=== PATIENT | female | born 1945 | race Caucasian/White ===

== ENCOUNTER → 2019-08-13 15:33 | Outpatient (BNVA) | payer MEDICARE, SELFPAY | PROVIDERS: Visit Provider Nurse Practitioner | DX: I35.9 Nonrheumatic aortic valve disorder, unspecified (principal); E04.9 Nontoxic goiter, unspecified | CPT/HCPCS: 80053; 84443 ==

== ENCOUNTER → 2019-11-03 09:04 | Outpatient (BNVA) | payer MEDICARE, SELFPAY | PROVIDERS: Visit Provider Nurse Practitioner | DX: E78.5 Hyperlipidemia, unspecified (principal); I10 Essential (primary) hypertension; R73.09 Other abnormal glucose | CPT/HCPCS: 80053; 80061; 83036 ==

== ENCOUNTER → 2020-02-10 08:36 | Outpatient (BNVA) | payer MEDICARE, SELFPAY | PROVIDERS: Visit Provider Nurse Practitioner | DX: E11.65 Type 2 diabetes mellitus with hyperglycemia (principal); Z68.25 Body mass index [BMI] 25.0-25.9, adult; I35.9 Nonrheumatic aortic valve disorder, unspecified | CPT/HCPCS: 80053; 80061; 81000; 82043; 83036 ==

== ENCOUNTER → 2020-09-19 08:31 | Outpatient (BNVA) | payer MEDICARE, SELFPAY | PROVIDERS: PCP Nurse Practitioner; Visit Provider Nurse Practitioner | DX: E11.65 Type 2 diabetes mellitus with hyperglycemia (principal); E04.9 Nontoxic goiter, unspecified | CPT/HCPCS: 80053; 80061; 83036 ==

== ENCOUNTER → 2021-02-14 09:31 | Outpatient (BNVA) | payer MEDICARE, SELFPAY | PROVIDERS: PCP Nurse Practitioner; Visit Provider Nurse Practitioner | DX: E11.65 Type 2 diabetes mellitus with hyperglycemia (principal); J30.89 Other allergic rhinitis; J30.2 Other seasonal allergic rhinitis | CPT/HCPCS: 80053; 80061; 83036; 84443 ==

== ENCOUNTER → 2021-05-01 07:59 | Outpatient (BNVA) | payer MEDICARE, SELFPAY | PROVIDERS: PCP Nurse Practitioner; Visit Provider Nurse Practitioner | DX: E04.9 Nontoxic goiter, unspecified (principal); E11.65 Type 2 diabetes mellitus with hyperglycemia | CPT/HCPCS: 80053; 80061; 83036; 84443 ==

== ENCOUNTER → 2021-11-08 08:56 | Outpatient (BNVA) | payer MEDICARE, SELFPAY | PROVIDERS: PCP Nurse Practitioner; Visit Provider Nurse Practitioner | DX: E11.65 Type 2 diabetes mellitus with hyperglycemia (principal); J30.89 Other allergic rhinitis; J30.2 Other seasonal allergic rhinitis; Z12.39 Encounter for other screening for malignant neoplasm of breast | CPT/HCPCS: 80053; 80061; 81000; 82043; 83036; 85025 ==

== ENCOUNTER → 2022-05-04 08:27 | Outpatient (BNVA) | payer MEDICARE, SELFPAY | PROVIDERS: PCP Nurse Practitioner; Visit Provider Nurse Practitioner | DX: E11.65 Type 2 diabetes mellitus with hyperglycemia (principal) | CPT/HCPCS: 80053; 80061; 81000; 82607; 83036; 84443; 85025 ==

== ENCOUNTER 2022-09-24 11:34 | Emergency (ER) | payer MEDICARE, SELFPAY ==
[2022-09-24 11:48] VITALS: BP 155/72; PULSE 81; RESP 16; TEMP 36.9; O2SAT 97
--- NOTE | 2022-09-24 11:55 | ECG_ITS ---
[facility] Test Date: 2022-09-24 Pat Name: Arline Donovan Department: Room: Gender: Female Vocational Training Director: : 1945 Requested By: Artemio Sampson Order Number: [id number] Katrina MD: Heaven Zhang M.D. Measurements Intervals [place] Rate: 72 P: 78 OK: 138 QRS: 68 QRSD: 101 T: 90 QT: 370 QTc: 407 Interpretive Statements SINUS RHYTHM ANTEROSEPTAL MYOCARDIAL INFARCTION , OF INDETERMINATE AGE [40+ ms Q WAVE IN V1-V4] Nonspecific T wave changes INTERPRETATION BASED ON A DEFAULT AGE OF 40 YEARS No previous ECG available for comparison Electronically Signed On 09-24-2022 23:40:52 CDT by Heaven Zhang M.D. [id number]
--- NOTE | 2022-09-24 11:58 | PC.NURSE ---
EKG PROVIDED TO DR. GIVENS.
[2022-09-24 14:13] VITALS: PULSE 64; RESP 18; O2SAT 100
--- NOTE | 2022-09-24 14:33 | ED_ITS ---
HPI - Dizziness General: Chief Complaint: Dizziness Stated Complaint: Dizziness, Blurry vision Time Seen by Provider: 09/24/22 13:54 Source: patient Mode of arrival: ambulatory History of Present Illness: HPI Narrative: 77-year-old female presents emergency room with complaint of lightheadedness dizziness blurry vision this been going off and on for nearly a year. She has also noticed decrease in her hearing and frequent tinnitus. It is worse when she first stands up when she is laying down if she moves her head or she has been today for a bit moves her head she does not have any recurrence of sy mptoms. She will feel like she loses her balance and sort of falls to the left- hand side occasionally it seems to be worse the last several days. No chest pain no difficulty speech or swallowing. No vomiting. No nausea. She has a history of a aortic valve replacement as well as some mitral valve regurg MD elicited complaint: dizziness and lightheadedness Onset (ago): month(s) Severity: mild Description: lightheadedness, off-balance and difficulty walking History of similar symptoms: Yes Exacerbating factors: nothing Relieving factors: nothing Associated symptoms: Denies abnormal vaginal bleeding, change in hearing, chest pain, chills, cough, diaphoresis, ear discharge, ear pressure, fevers/chills, headache(s), malaise, nausea, nasal congestion, palpitations, rash, short of breath, syncope, tinnitus, vomiting or weakness Associated neuro symptoms: Deny confusion, difficulty speaking, dysphagia, diplopia, extremity weakness, facial numbness, facial weakness, gait changes, numbness in extremities or visual changes Review of Systems Const: Denies: fever(s), chills, fatigue, malaise or diaphoresis ENMT: Denies: ear discharge, change in hearing, tinnitus or nasal congestion Card: Denies: chest pain, palpitations or syncope Resp: Denies: dyspnea, productive cough or non-productive cough GI: Denies: abdominal pain, nausea, vomiting or dysphagia : Denies: flank pain, difficulty voiding, dysuria, urinary frequency or urinary urgency Skin/Breast: Denies: rash or pruritus Neuro: Denies: headache(s), numbness in extremities or confusion PFS ED PFSH: Medical History Aortic valve disease BMI 25.0-25.9,adult Controlled diabetes mellitus with hyperglycemia Seasonal allergic conjunctivitis Surgical History History of cataract surgery Right History of cholecystectomy History of colon surgery early colon cancer removed 1 foot History of colonoscopy 2020 History of heart valve replacement 2017 arotic Family History Other Diabetes Heart disease Hypertension Social History Smoking and tobacco status: former smoker Second hand smoke exposure: No Smoking risk assessment/counseling performed?: No Alcohol intake: never Desire information about alcohol rehabilitation?: No Counseling given: No Desire information about substance/drug rehabilitation?: No Counseling given: No Adopted: No Caregiver/support person: No Lives independently: Yes Household members: spouse Housing: House Marital status: Number of children: 1 Number of grandchildren: 6 service: No Current occupational status: retired Current gender identity: Female Physical Exam Const: GENERAL APPEARANCE: cooperative and comfortable ORIENTATION/CONSCIOUSNESS: Yes awake, Yes oriented to person, Yes oriented to place and Yes oriented to time HENMT: COMMON NORMALS: normocephalic, atraumatic and hearing grossly normal bilaterally HEAD & SCALP: normocephalic and atraumatic Resp: COMMON NORMALS: normal respiratory effort, No retractions, No use of accessory muscles and clear to auscultation bilaterally AUSCULTATION: clear to auscultation bilaterally Cardio: COMMON NORMALS: regular rate, regular rhythm and No murmurs present (Cardio) RATE: regular rate RHYTHM: regular rhythm GI: COMMON NORMALS: Soft to palpation and No hepatosplenomegaly present AUSCULTATION: Yes normoactive bowel sounds PALPATION: Yes Soft to palpation, No Tenderness to palpation present (GI), No Guarding due to palpation present (GI) and Yes No hepatosplenomegaly present Extremity: COMMON NORMALS: normal to inspection, capillary refill normal, no clubbing, cyanosis or edema, no calf tenderness and no pedal edema Neuro: SENSORIUM/ORIENTATION: Yes oriented to person, Yes oriented to place and Yes oriented to time Skin: COMMON NORMALS: no rashes or lesions noted GENERAL SKIN EXAM: no rashes or lesions noted Course Vital Signs: Vital signs: Vital Signs Temperature 98.4 F 09/24/22 11:48 Pulse Rate 63 09/24/22 16:59 Respiratory Rate 21 H 09/24/22 16:59 Blood Pressure 174/80 09/24/22 16:59 Pulse Oximetry 100 09/24/22 16:59 Oxygen Delivery Me thod Room Air 09/24/22 16:59 MDM - Dizziness Medical Decision Making Bedside visual exam unremarkable at this time. Her other symptoms sound as if she is having M?ni?re's disease there is no focal neurologic deficits suggestive of a stroke at this point. Labs and imaging reviewed with the patient through the chart. We will discharge her home on meclizine to use as needed and set her up to see ENT as well. Medical Records I reviewed the patient's medical records. Lab Data I reviewed the patient's lab results. 09/24/22 15:03 09/24/22 15:[address] 09/24/22 14:41 IMPRESSION: 1. Atrophic or involutional change for age, along with mild periventricular chronic small-vessel disease change. 2. No acute intracranial abnormality. Laboratory Results WBC 8.4 10^3/uL (4.0-10.0) 09/24/22 15:03 RBC 4.45 10^6/uL (4.1-5.3) 09/24/22 15:03 Hgb 13.8 g/dL (11.5-15.3) 09/24/22 15:03 Hct 41.6 % (37.0-47.0) 09/24/22 15:03 MCV 93.5 fl (81-99) 09/24/22 15:03 MCH 31.0 pg (28.0-34.0) 09/24/22 15:03 MCHC 33.2 g/dL (30.0-36.0) 09/24/22 15:03 RDW 12.1 % (12.1-15.1) 09/24/22 15:03 Plt Count 182 10^3/cmm (130-400) 09/24/22 15:03 MPV 11.0 fL (7.4-10.4) H 09/24/22 15:03 Neut % (Auto) 78.5 % 09/24/22 15:03 Lymph % (Auto) 14.0 % 09/24/22 15:03 [place] % (Auto) 6.5 % 09/24/22 15:03 Eos % (Auto) 0.2 % 09/24/22 15:03 Baso % (Auto) 0.4 % 09/24/22 15:03 Neut # (Auto) 6.59 10^3/uL (1.8-7.7) 09/24/22 15:03 Lymph # (Auto) 1.2 10^3/uL (0.8-4.8) 09/24/22 15:03 [place] # (Auto) 0.6 10^3/uL (0.2-0.9) 09/24/22 15:03 Eos # (Auto) 0.0 10^3/uL (0.0-0.8) 09/24/22 15:03 Baso # (Auto) 0.0 10^3/uL (0.0-0.1) 09/24/22 15:03 Nucleated RBC % (auto) 0 % 09/24/22 15:03 Nucleated RBCs # 0.0 /100WBC 09/24/22 15:03 Sodium 137 mmol/L (136-145) 09/24/22 15:03 Potassium 4.3 mmol/L (3.5-5.1) 09/24/22 15:03 Chloride 101 mmol/L (98-107) 09/24/22 15:03 Carbon Dioxide 23 mmol/L (22-29) 09/24/22 15:03 Anion Gap 17.3 (5-19) 09/24/22 15:03 BUN 11 mg/dL (8-23) 09/24/22 15:03 Creatinine 0.9 mg/dL (0.5-0.9) 09/24/22 15:03 GFR Calculation Not Reportable 09/24/22 15:03 Glucose 96 mg/dL (65-115) 09/24/22 15:03 Calculated Osmolality 283 mOsm/kg (285-295) L 09/24/22 15:03 Calcium 9.3 mg/dL (8.5-10.5) 09/24/22 15:03 Total Bilirubin 0.6 mg/dL (0.15-1.2) 09/24/22 15:03 AST 21 U/L (0-32) 09/24/22 15:03 ALT 14 U/L (0-33) 09/24/22 15:03 Alkaline Phosphatase 67 U/L (35-105) 09/24/22 15:03 Total Protein 7.2 g/dL (6.6-8.7) 09/24/22 15:03 Albumin 4.4 g/dL (3.5-5.2) 09/24/22 15:03 Globulin 2.8 g/dL (1.3-4.6) 09/24/22 15:03 Urine Color Yellow (Yellow) 09/24/22 16:40 Urine Appearance Hazy (CLEAR) A 09/24/22 16:40 Urine pH 5 (5-7) 09/24/22 16:40 Ur Specific [place] 1.015 (1.005-1.030) 09/24/22 16:40 Urine Protein Neg (Negative) 09/24/22 16:40 Urine Glucose (UA) Norm (Normal) 09/24/22 16:40 Urine Ketones Negative (Negative) 09/24/22 16:40 Urine Blood Neg (Negative) 09/24/22 16:40 Urine Nitrate Negative (Negative) 09/24/22 16:40 Urine Bilirubin Neg (Negative) 09/24/22 16:40 Urine Urobilinogen Neg mg/dL (Negative) 09/24/22 16:40 Ur Leukocyte Esterase 1+ (Negative) H 09/24/22 16:40 Urine RBC None /hpf (0-2) 09/24/22 16:40 Urine WBC 0-4 /hpf (0-5) H 09/24/22 16:40 Ur Squamous Epith Cells 0-4 /hpf (0-5) H 09/24/22 16:40 Amorphous Sediment Not Reportable 09/24/22 16:40 Urine Bacteria Trace /hpf (NONE) 09/24/22 16:40 Discharge Plan Discharge Patient Disposition: Home Clinical Impression: Meniere's disease Condition: Stable Prescriptions: New meclizine 25 mg tablet 12.5 mg PO QID PRN (Reason: dizziness) Qty: 20 0RF No Action olopatadine [Pataday Once Daily Relief] 0.2 % drops 1 drp ophthalmic (eye) QAM Qty: 2.5 0RF aspirin [Aspir-81] 81 mg tablet,delayed release (DR/EC) 81 mg PO DAILY cetirizine [Zyrtec] 10 mg tablet 10 mg PO DAILY Qty: 30 0RF metformin 500 mg tablet extended release 24 hr 500 mg PO BID Qty: 180 1RF atorvastatin [Lipitor] 10 mg tablet 10 mg PO DAILY Qty: 90 1RF Discharge Orders: Discharge ED (Routine); Ordered 09/24/22 Ordered By: Artemio Juarez Referrals: Jose Eduardo Pittman, [employer] [Primary Care Provider] - Discharge Diet: Usual diet Discharge Activity: Resume usual activity Patient Instructions: Meniere Disease (ED), Opioid Safety, Pain Management Activity Restrictions/Additional Instructions: You were seen today for complaint of dizziness as well as imbalance hearing loss and tenderness. Your symptoms are highly suggestive of M?ni?re's disease. CT of your head was negative. Recommend that you follow-up with the ENT manager hospice will make arrangements for discharge home with meclizine to use 12.5 mg every 6 hours as needed. Coding Level of Care Code ED Call Center Associate for Zehra Orozco
--- NOTE | 2022-09-24 14:41 | CTR_ITS ---
PROCEDURE INFORMATION: Exam: CT Head Without Contrast Exam date and time: 09/24/2022 4:05 PM Age: 77 years old Clinical indication: Dizziness TECHNIQUE: Imaging protocol: Computed tomography of the head without contrast. Radiation optimization: All CT scans at this facility use at least one of these dose optimization techniques: automated exposure control; mA and/or kV adjustment per patient size (includes targeted exams where dose is matched to clinical indication); or iterative reconstruction. REPORTING DATA: Count of CT and Cardiac NM exams in prior 12 months: This patient has received 0 known CTs and 0 known cardiac nuclear medicine studies in the 12 months prior to the current study. COMPARISON: No relevant prior studies available. RADIATION DOSE METRICS: Total DLP (mGy-cm): 979.5 FINDINGS: Brain: Atrophic or involutional change for age noted, along with mild periventricular chronic small-vessel disease change bilaterally. No intracranial hemorrhage or hematoma is seen. No mass effect or shift of midline structures. No findings to indicate large vessel ischemic change or infarct. Small benign basal ganglia calcifications bilaterally and benign falx calcification is seen. Cerebral ventricles: No significant ventriculomegaly. Paranasal sinuses: Visualized sinuses are unremarkable. No fluid levels. Mastoid air cells: Visualized mastoid air cells are well aerated. Bones/joints: Unremarkable. No acute fracture. Soft tissues: Unremarkable. No available reconstruction images. CT/CT head wo con* [id number] IMPRESSION: 1. Atrophic or involutional change for age, along with mild periventricular chronic small-vessel disease change. 2. No acute intracranial abnormality.
[2022-09-24 15:04] VITALS: BP 162/66; PULSE 67; PULSE 68; RESP 18; RESP 19; O2SAT 100; O2SAT 96
[2022-09-24 15:07] VITALS: BP 157/63; BP 164/62; BP 166/62
[2022-09-24 15:22] LABS: Basophils % 0.4 %; Eosinophils % 0.2 %; Hematocrit 41.6 % (37.0-47.0); Hemoglobin 13.8 g/dL (11.5-15.3); Lymphocytes # 1.2 10^3/uL (0.8-4.8); Mean Corpuscular HGB Conc 33.2 g/dL (30.0-36.0); Mean Corpuscular Volume 93.5 fl (81-99); Monocytes # 0.6 10^3/uL (0.2-0.9); Monocytes % 6.5 %; Neutrophils # 6.59 10^3/uL (1.8-7.7); Neutrophils % 78.5 %; Nucleated Red Blood Cells % 0 %; Platelet Count 182 10^3/cmm (130-400); Red Blood Count 4.45 10^6/uL (4.1-5.3); Red Cell Distribution Width 12.1 % (12.1-15.1); White Blood Count 8.4 10^3/uL (4.0-10.0)
[2022-09-24 15:34] LABS: Alanine Aminotransferase 14 U/L (0-33); Albumin Level 4.4 g/dL (3.5-5.2); Alkaline Phosphatase 67 U/L (35-105); Anion Gap 17.3 (5-19); Aspartate Amino Transferase 21 U/L (0-32); Blood Urea Nitrogen 11 mg/dL (8-23); Calcium 9.3 mg/dL (8.5-10.5); Carbon Dioxide 23 mmol/L (22-29); Chloride 101 mmol/L (98-107); Globulin 2.8 g/dL (1.3-4.6); Glucose 96 mg/dL (65-115); Osmolality Calculated 283 mOsm/kg (285-295); Potassium 4.3 mmol/L (3.5-5.1); Sodium 137 mmol/L (136-145); Total Bilirubin 0.6 mg/dL (0.15-1.2); Total Protein 7.2 g/dL (6.6-8.7)
[2022-09-24 16:44] VITALS: BP 178/72; PULSE 65; RESP 12; O2SAT 100
[2022-09-24 16:59] VITALS: BP 174/80; PULSE 63; RESP 21; O2SAT 100
[2022-09-24 17:10] LABS: Add Urine Culture? No; Add Urine Microscopic? YES; Bacteria Urine TRACE /hpf; Bilirubin Urine Neg (Negative); Blood Urine Neg (Negative); Glucose Urine UA Norm (Normal); Ketones Urine Negative (Negative); Leukocyte Esterase Urine 1+ (Negative); Nitrate Urine Negative (Negative); Protein Urine Neg (Negative); Specific Gravity, Urine 1.015 (1.005-1.030); Squamous Epithelial Cell Urine 0-4 /hpf (0-5); Urine Appearance Hazy (CLEAR); Urine Color Yellow (Yellow); Urobilinogen Urine Neg (Negative); WBC Urine 0-4 /hpf (0-5); pH Urine 5 (5-7)
--- NOTE | 2022-09-25 08:42 | DCPLANNER ---
Addendum entered by Adamaris Mcgrath 09/27/22 07:33: assisted living care manager received the following message from the ENT clinic regarding follow up appointment: pt states that she does not want to schedule at this time, states she will call us back when she is wanting to be seen. Original Note: assisted living care manager had message to schedule a follow up appointment for patient with ENT. assisted living care manager sent patients information to the front office staff at ENT. Patients information will be printed and reviewed. Clinic will call patient with appointment information.
== END 2022-09-24 17:16 | disposition home or self-care (01) ==
PROVIDERS: Emergency Provider Family Medicine; PCP Nurse Practitioner
DX: H81.09 Meniere's disease, unspecified ear (principal); Z79.82 Long term (current) use of aspirin; Z79.84 Long term (current) use of oral hypoglycemic drugs; Z87.891 Personal history of nicotine dependence; E11.9 Type 2 diabetes mellitus without complications
CPT/HCPCS: 36415; 70450; 80053; 81001; 85025; 93005; 99285

== ENCOUNTER → 2022-10-24 10:07 | Outpatient (BNVA) | payer MEDICARE, SELFPAY | PROVIDERS: PCP Nurse Practitioner; Visit Provider Nurse Practitioner | DX: E11.65 Type 2 diabetes mellitus with hyperglycemia (principal) | CPT/HCPCS: 80061; 82043; 83036 ==

== ENCOUNTER → 2023-04-23 11:04 | Outpatient (BNVA) | payer MEDICARE, SELFPAY | PROVIDERS: PCP Nurse Practitioner; Visit Provider Nurse Practitioner | DX: E11.65 Type 2 diabetes mellitus with hyperglycemia (principal); J30.89 Other allergic rhinitis; J30.2 Other seasonal allergic rhinitis; H81.09 Meniere's disease, unspecified ear | CPT/HCPCS: 71046; 80053; 80061; 83036; 85025 ==

== ENCOUNTER → 2023-09-17 10:38 | Outpatient (BNVA) | payer MEDICARE, SELFPAY | PROVIDERS: PCP Nurse Practitioner; Visit Provider Nurse Practitioner | DX: E11.65 Type 2 diabetes mellitus with hyperglycemia (principal); E11.9 Type 2 diabetes mellitus without complications | CPT/HCPCS: 80053; 80061; 82043; 82607; 83036 ==

== ENCOUNTER → 2024-03-03 11:04 | Outpatient (BNVA) | payer MEDICARE, SELFPAY | PROVIDERS: PCP Nurse Practitioner; Visit Provider Nurse Practitioner | DX: E11.65 Type 2 diabetes mellitus with hyperglycemia (principal) | CPT/HCPCS: 80053; 80061; 83036; 84443; 85025 ==

== ENCOUNTER → 2024-03-09 10:41 | Outpatient (BNVA) | payer MEDICARE, SELFPAY | PROVIDERS: PCP Nurse Practitioner; Visit Provider Nurse Practitioner | DX: Z12.2 Encounter for screening for malignant neoplasm of respiratory organs (principal); Z98.890 Other specified postprocedural states; Z95.2 Presence of prosthetic heart valve; K59.01 Slow transit constipation; R10.13 Epigastric pain; M85.80 Other specified disorders of bone density and structure, unspecified site; M47.898 Other spondylosis, sacral and sacrococcygeal region; R11.0 Nausea | CPT/HCPCS: 71046; 74018 ==

== ENCOUNTER 2025-03-17 09:35 | Outpatient (CLI) | payer MEDICARE, SELFPAY ==
--- NOTE | 2025-03-17 09:45 | MM_ITS ---
WS: [id number] DIAGNOSTIC BILATERAL DIGITAL BREAST TOMOSYNTHESIS MAMMOGRAPHY WITH CAD LEFT breast ultrasound, limited HISTORY: L29.9 - Pruritus, unspecified, LEFT breast. COMPARISON: None available. TECHNIQUE: Bilateral craniocaudad, mediolateral oblique, and mediolateral views are submitted with tomosynthesis and SM. Spot compression LEFT MLO. Computer aided detection utilized. Breast composition: There are scattered areas of fibroglandular density. Dense bilateral arterial calcifications in each breast. No suspicious masses or distortion. No skin thickening. There is no abnormality noted in the LEFT breast in the area of pruritus. There is no skin retraction. No skin thickening. No mass. LEFT breast ultrasound, limited. Ultrasound is performed in the LEFT breast in the area of clinical concern. There is no abnormality identified. There is no shadowing or mass. MM/MM diag tomosynthesis [id number] IMPRESSION: BI-RADS: 2 - Benign. FOLLOW UP: 1 Year Follow-up No ultrasound or mammographic abnormality noted in the LEFT breast in the area of clinical concern.
--- NOTE | 2025-03-17 10:53 | US_ITS ---
WS: [id number] DIAGNOSTIC BILATERAL DIGITAL BREAST TOMOSYNTHESIS MAMMOGRAPHY WITH CAD LEFT breast ultrasound, limited HISTORY: L29.9 - Pruritus, unspecified, LEFT breast. COMPARISON: None available. TECHNIQUE: Bilateral craniocaudad, mediolateral oblique, and mediolateral views are submitted with tomosynthesis and SM. Spot compression LEFT MLO. Computer aided detection utilized. Breast composition: There are scattered areas of fibroglandular density. Dense bilateral arterial calcifications in each breast. No suspicious masses or distortion. No skin thickening. There is no abnormality noted in the LEFT breast in the area of pruritus. There is no skin retraction. No skin thickening. No mass. LEFT breast ultrasound, limited. Ultrasound is performed in the LEFT breast in the area of clinical concern. There is no abnormality identified. There is no shadowing or mass. US/US breast LT limited* [id number] IMPRESSION: BI-RADS: 2 - Benign. FOLLOW UP: 1 Year Follow-up No ultrasound or mammographic abnormality noted in the LEFT breast in the area of clinical concern.
== END 2025-03-17 09:36 | disposition home or self-care (01) ==
LOC: RAD 09:43
PROVIDERS: PCP Nurse Practitioner; Visit Provider Nurse Practitioner
DX: L29.9 Pruritus, unspecified (principal); R92.1 Mammographic calcification found on diagnostic imaging of breast; R92.323 Mammographic fibroglandular density, bilateral breasts
CPT/HCPCS: 76642; 77062; G0279